=== PATIENT | male | born 1945 | race Caucasian/White ===

== ENCOUNTER 2016-06-01 03:23 | Emergency (ER) | payer MEDICARE, OTHER ==
[~2016-06-01] VITALS: Ht 182.9 cm; Wt 115.9 kg
[~2016-06-01 03:23] MED LIST: ACET-1890 PO; ASPI-628 PO; CHOL100094 PO; CYAN500 PO; CYCL7.5T27 PO; DOXA2TAB52 PO; FLUT16SP NS; GABA-502 PO; IBUP200T48 PO; LISI-571 PO; OMEP-113 PO; PRAV40TA PO
[2016-06-01 03:25] VITALS: BP 137/79; PULSE 75; RESP 20; O2SAT 95
[2016-06-01] MEDS ORDERED: 0.9% Sodium Chloride 1,000 ML IV ONE (03:42)
[2016-06-01] MEDS ORDERED: HYDROmorphone 1 mg/mL Inj IVPUSH PRN (03:45)
[2016-06-01] MEDS ORDERED: Ondansetron 2 mg/mL 2 mL Inj IVPUSH ONE (03:45)
[2016-06-01] MEDS ORDERED: Pantoprazole 4 mg/mL 10 mL Inj IVPUSH ONE (03:45)
--- NOTE | 2016-06-01 03:47 | ED.REPORT ---
HPI-Abd Pain M 40 and Over Date of Service Jun 01, 2016 ED Provider: Usman Azevedo MD Patient is a 71 year old male with a history of MGUS, hypertension, diabetes mellitus, kidney stones, and diverticulitis who presents to the ED complaining of left lower quadrant abdominal pain that awoke him from sleep at 1:30am this morning. The patient was sudden in onset and he felt well prior to going to bed last night. The patient went up to go to the bathroom but found that he was constipated. Patient states that he often wakes up in the morning with the sensation that he needs to have a bowel movement, but he is not able to do so until the afternoon. The patient had symptoms like this previously, with no etiology for his symptoms discovered. He denies nausea or vomiting. The patient reports a history of kidney stones and states that this does not feel like a kidney stone. He denies black/tarry stool, hematochezia, diarrhea, fever, or chills. Nursing Notes Stated Complaint: LEFT SIDE PAIN Chief Complaint: Male Abdominal Pain Nursing Notes Reviewed: Yes Allergies: Coded Allergies: Sulfa (Sulfonamide Antibiotics) (Verified Allergy, Severe, RASH, 05/11/15) ciprofloxacin HCl (Verified Allergy, Severe, RASH, 05/11/15) diazepam (Verified Allergy, Intermediate, Restlessness, 05/11/15) "acting like he was having a stroke" Scheduled Acetaminophen (Tylenol) 325 Mg Tablet 650 MG PO Q2-3 DAYS Amoxicillin/Clav K ER 1000-62.5 mg (Augmentin XR 1000-62.5 mg) 1 Each Tab.er.12h 2 TABLET PO BID Aspirin (Aspir 81) 81 Mg Tablet.dr 81 MG PO DAILY Cholecalciferol (Vitamin D3) (Vitamin D3) 1,000 Unit Capsule 1,000 UNIT PO DAILY Cyanocobalamin (Vitamin B12) 500 Mcg Tablet 1,000 MCG PO DAILY Doxazosin (Cardura) 2 Mg Tablet 2 MG PO HS Fluticasone Propionate (Fluticasone Propionate Nasal) 16 Gm [place].susp 2 SPRAY NS BID Gabapentin (Gabapentin) 300 Mg Capsule 600 MG PO BID Lisinopril (Lisinopril) 5 Mg Tablet 2.5 MG PO BID Metronidazole (Flagyl) 500 Mg Tablet 500 MG PO Q8H Omeprazole Magnesium (Omeprazole) 20 Mg Capsule. 20 MG PO DAILY Pravastatin (Pravastatin) 40 Mg Tablet 40 MG PO DAILY Scheduled PRN Cyclobenzaprine (Cyclobenzaprine) 7.5 Mg Tablet 7.5 MG PO TID PRN PRN Spasm Docusate Sodium (Colace) 100 Mg Capsule 100 MG PO BID PRN PRN For Constipation Hydrocodone-Acetaminophen 5-325 mg (Hydrocodone-Acetaminophen 5-325 mg) 1 Each Tablet 1 TABLET PO Q4H PRN PRN For Pain Ibuprofen (Ibuprofen) 200 Mg Tablet 200 MG PO QID PRN PRN For Pain General Time Seen by MD: 03:34 Chief Complaint Abdominal pain Hx Obtained From: Patient Arrived By: Walk-in Sudden in Onset?: Yes Onset Occurred: 1 - 4 hours ago Symptom Duration: Since onset Location: : LLQ Quality: Painful Severity: Current: Moderate Severity: Maximum: Moderate Recent Healthcare: No recent doctor visit, No recent hospitalization Similar Sx Previous: Yes Past Medical History Past Medical History 1. Surgically treated bladder cancer. 2. Gastroesophageal reflux disease. 3. Dyslipidemia. 4. Hypertension. 5. Mild insomnia. 6. Monoclonal gammopathy of uncertain significance. (MGUS) 7. Recurrent kidney stones, resolved since parathyroidectomy. 8. adrenal adenoma 9. basal cell carcinoma 10. BPH 11. arthritis 12. C. diff colitis Reports: Diabetes mellitus, Hyperlipidemia, Hypertension Reports: Diverticulitis Past Surgical History 1. He has had bladder surgery. 2. Penile implant. 3. Spinal stenosis surgery. 4. Bilateral orchiopexy. 5. Parathyroidectomy. 6. cervical and back fusions 7. left total hip replacement Family History noncontributory Smoking History Former Smoker Social History Alcohol Use: "Social" Other Social History: Good social support, , Local resident Ambulatory Status Independent Review of Systems Constitutional: Denies: Chills, Fever GI: Reports: Abdominal pain, Constipation, Denies: Bloody/tarry stool, Diarrhea, Hematochezia, Nausea, Vomiting Complete sys rev & neg: except as marked. Physical Exam Initial Vital Signs Vital Signs (First) Date Time Temp Pulse Resp B/P Pulse Ox O2 Delivery O2 Flow Rate FiO2 06/01/16 03:25 37.1 75 20 137/79 95 Room Air Initial VS: Reviewed Head / Eyes: Atraumatic, Normocephalic, PERRL ENT: Conjunctiva normal, No scleral icterus Neck: Supple, Full range of motion Extremities: Vascular intact, Neuro intact, No swelling, No tenderness Skin: Warm, Dry, No cyanosis Neurologic: Alert, Oriented, Nonfocal Psychiatric: Mood/affect normal, Behavior normal, Normal thought content General/Constitutional: Awake, Alert, No acute distress Respiratory / Chest: Breath sounds NL, Breath sounds = bilat, No respiratory distress, No rales, No rhonchi, No wheezing Cardiovascular: Heart rate NL, Regular rhythm, Heart sounds NL, No murmurs Abdomen: Soft, Non-tender, No guarding, No rebound, No distention Back: No CVA tenderness Interpretation & Diagnostics Lab Results Interpretation Result Diagram: 06/01/16 0430 06/01/16 0410 Test 06/01/16 03:55 06/01/16 04:10 06/01/16 04:30 Urine Color Yellow (YELLOW) Urine Appearance Clear (CLEAR,HAZY) Urine pH 6.0 (5.0-8.0) Urine Specific [place] 1.020 (1.003-1.035) Urine Protein Negativemg/dL (NEG,TRACE) Urine Glucose (UA) Negativemg/dL (NEGATIVE) Urine Ketones Negativemg/dL (NEGATIVE) Urine Occult Blood Negative (NEGATIVE) Urine Nitrite Negative (NEGATIVE) Urine Bilirubin Negative (NEGATIVE) Urine Urobilinogen Normalmg/dL (NORMAL) Urine Leukocyte Esterase Negative (NEGATIVE) Urine RBC 0-2/hpf (0-2) Urine WBC 0-5/hpf (0-5) Urine Epithelial Cells Occasional/hpf (NONE-MOD) Urine Crystals None seen (NONE SEEN) Urine Bacteria None/hpf (NONE-FEW) Urine Hyaline Casts Rare/lpf (NONE) Urine Granular Casts None seen (NONE SEEN) Urine Waxy Casts Rare (NONE SEEN) Urine Red Blood Cell Casts None seen (NONE SEEN) Urine White Blood Cell Casts None seen (NONE SEEN) Urine Mucus Present (None Seen) Urine Trichomonas None seen (NONE SEEN) Urine Yeast None (NONE SEEN) Urinalysis Comment None Urine Culture Reflexed Not indicated Prothrombin Time 10.5sec (8.1-12.5) Prothromb Time International Ratio 0.98ratio Sodium Level 141mEq/L (134-144) Potassium Level 3.9mEq/L (3.5-5.2) Chloride Level 101mEq/L (97-108) Carbon Dioxide Level 26mmol/L (18-29) Blood Urea Nitrogen 25mg/dL (8-27) Creatinine 1.13mg/dL (0.76-1.27) Estimat Glomerular Filtration Rate 68mL/min (>59) Glucose Level 115mg/dL (60-99) Lactic Acid Level 1.1mmol/L (0.4-2.0) Calcium Level 9.0mg/dL (8.5-10.1) Magnesium Level 1.8mg/dL (1.6-2.6) Total Bilirubin 0.7mg/dL (0.0-1.2) Aspartate Amino Transf (AST/SGOT) 18U/L (0-50) Alanine Aminotransferase (ALT/SGPT) 29U/L (0-44) Alkaline Phosphatase 78U/L (25-160) Total Protein 7.7g/dL (6.4-8.4) Albumin 4.3g/dL (3.4-5.0) Lipase 25U/L (13-60) White Blood Count 4.9th/mm3 (3.8-10.1) Red Blood Count 4.11mil/mm3 (4.40-5.80) Hemoglobin 12.3g/dL (13.8-17.2) Hematocrit 37.3% (41.0-50.0) Mean Corpuscular Volume 90.8fL (81-100) Mean Corpuscular Hemoglobin 29.9pg (27.0-35.0) Mean Corpuscular Hemoglobin Concent 33.0% (32.0-37.0) Red Cell Distribution Width 14.7% (12.3-15.4) Platelet Count 125bil/L (150-400) Neutrophils (%) (Auto) 73.7% (40-74) Lymphocytes (%) (Auto) 12.1% (14-46) Monocytes (%) (Auto) 8.9% (4-12) Eosinophils (%) (Auto) 4.7% (0-5) Basophils (%) (Auto) 0.4% (0-3) Re-Eval/Medical Decision Med Decision/Clinical Course GC 11-year-old with relatively sudden on left-sided flank and abdominal pain. He presents to have diverticulitis on CT. It is fairly mild, without perforation or abscess. He is able to eat and drink and feels he would be able tolerate oral meds at home. Discharged now with Vicodin for pain, Augmentin XR two tabs twice a day plus Flagyl for infection. Clear liquid progressive diet. Diverticulitis diet ultimately. Colace twice a day. Fiber supplementation ultimately. Discharged in stable condition. Source of Hx: Old records Re-Evaluation/Progress Note: Rechecked the patient to discuss the results of his CT scan. Patient understands and agrees with the plan. All questions were addressed. Counseled Regarding: Diagnosis, Lab results Discharge & Departure Primary Impression: Diverticulitis of sigmoid colon Vital Signs - All Vital Signs Date Time Temp Pulse Resp B/P Pulse Ox O2 Delivery O2 Flow Rate FiO2 06/01/16 06:57 36.6 88 18 138/72 98 Room Air 06/01/16 03:25 37.1 75 20 137/79 95 Room Air )( All Prior VS Reviewed: Yes Condition: Stable Referrals: Adeline Cheung MD (PCP) Scribe Attestation Portions of this note were transcribed by Melony Noe. I, Dr. Azevedo personally performed the history, physical exam and medical decision-making; I reviewed and confirmed the accuracy of the information in the transcribed note. Signed by: Jessica Cadena, 06/01/2016 0611 copies to: Adeline Cheung MD, Christopher W MD Jun 01, 2016 03:46 Melony Noe Jun 01, 2016 03:54
[2016-06-01 04:43] LABS: BASOPHILS % (AUTO) 0.4 % (0-3); EOSINOPHILS % (AUTO) 4.7 % (0-5); MONOCYTES % (AUTO) 8.9 % (4-12); Mean Corpuscular Hemoglobin 29.9 pg (27.0-35.0); Mean Corpuscular Volume 90.8 fL (81-100); NEUTROPHILS % (AUTO) 73.7 % (40-74); Platelet Count 125 bil/L (150-400)
[2016-06-01 04:45] LABS: INR 0.98 ratio
[2016-06-01 04:50] LABS: Magnesium 1.8 mg/dL (1.6-2.6)
[2016-06-01 04:55] LABS: APPEARANCE,URINE CLEAR (CLEAR,HAZY); COLOR,URINE YELLOW (YELLOW)
[2016-06-01 04:56] LABS: OCCULT BLOOD,URINE NEGATIVE (NEGATIVE); UROBILINOGEN,URINE NORMAL (NORMAL)
[2016-06-01] MEDS ORDERED: cefTRIAXone Inj 2,000 MG in Dextrose 5% Minibag Plus 50 ML IV ONE (06:55)
[2016-06-01 06:57] VITALS: BP 138/72; PULSE 88; RESP 18; O2SAT 98
[2016-06-01] MEDS ORDERED: AMOX-364 PO (07:04)
[2016-06-01] MEDS ORDERED: DOCU-41 PO (07:04)
[2016-06-01] MEDS ORDERED: HYDR-4003 PO (07:04)
[2016-06-01] MEDS ORDERED: METR500T PO (07:04)
[2016-06-01 07:52] VITALS: BP 110/55; PULSE 60; RESP 14; O2SAT 97
[2016-06-01 07:56] VITALS: BP 110/55; PULSE 60; RESP 14; O2SAT 97
--- NOTE | 2016-06-01 11:06 | DRSVH ---
PROCEDURE: CT ABDOMEN AND PELVIS WITH CONTRAST ([id number]) INDICATIONS: left flank pain, hx diverticulitis TECHNIQUE: After the administration of intravenous contrast, 5 mm thick sections acquired from the diaphragm to the symphysis. 5 mm coronal and sagittal reformats were acquired. For radiation dose reduction, the following was used: automated exposure control, adjustment of mA and/or kV according to patient siz e. COMPARISON: [facility], CT, ABD/PELVIS W/CON (PN), 04/06/2013, 2:45. FINDINGS: Image quality: Excellent. ABDOMEN: Lung bases: Lung bases are clear. Heart size is normal. Solid organs: Liver and spleen are normal in size and enhancement. There are scattered small simple appearing hepatic cysts. Gallbladder appears normal. Biliary system is non dilated. Pancreas enha nces normally. No adrenal nodules. Kidneys demonstrate normal size and enhancement, without hydrone phrosis. There is an 8mm nonobstructing 746 Hounsfield units a lower third right renal collecting sy stem calculus, without associated renal inflammation. An exophytic simple appearing large left renal cortical cyst measures up to 7.5 cm in maximal dimension, projecting leftward. Peritoneum and bowel: Bowel loops demonstrate normal wall thickness and caliber. No free fluid or a ir. Nodes and vessels: No retroperitoneal or mesenteric adenopathy by size criteria. Aorta and inferior vena cava are normal in size. Miscellaneous: No ventral hernias. PELVIS: Genitourinary: Bladder wall thickness is normal. Penile implant control device implanted right lowe r pelvis near the groin level, previously present with no associated inflammation. Miscellaneous: No inguinal hernias or adenopathy. At the left lower quadrant note is made of modera te sigmoid diverticulosis, and at the junction of the descending and sigmoid bowel adjacent pericolon ic mild edema is present indicating diverticulitis there is acute, but without associated peridiverti cular abscess. Bones: No suspicious bony lesions. No vertebral body compression fractures. IMPRESSION: Acute left lower quadrant diverticulitis in the setting of mild to moderate sigmoid diver ticulosis. No peridiverticular abscess is associated. Nonobstructive 8mm maximal dimension lower right renal collecting system calculus. Scattered simple hepatic cysts, and throughout the abdomen and pelvis no underlying neoplasm is suspected. Penile imp lant control device right lower quadrant. Dictated by: Fabio Johnson M.D. on 06/01/2016 at 10:54 Approved by: Fabio Johnson M.D. on 06/01/2016 at 11:05
[2016-06-02] MEDS ORDERED: OMEP20CA11 PO (09:40)
[2016-06-02] MEDS ORDERED: CYAN10008 PO (09:40)
[2016-06-02] MEDS ORDERED: IBUP200C PO (09:42)
[2016-06-02] MEDS ORDERED: ASPI-973 PO (09:44)
[2016-06-02] MEDS ORDERED: CHOL100045 PO (09:44)
== END 2016-06-01 08:00 | disposition home or self-care (01) ==
LOC: SED 03:23
DX: K57.32 Diverticulitis of large intestine without perforation or abscess without bleeding (principal); D47.2 Monoclonal gammopathy; I10 Essential (primary) hypertension; E11.9 Type 2 diabetes mellitus without complications; K21.9 Gastro-esophageal reflux disease without esophagitis; E78.5 Hyperlipidemia, unspecified; Z87.442 Personal history of urinary calculi; Z85.51 Personal history of malignant neoplasm of bladder; Z87.891 Personal history of nicotine dependence; Z79.82 Long term (current) use of aspirin; Z88.2 Allergy status to sulfonamides; Z88.1 Allergy status to other antibiotic agents; Z88.8 Allergy status to other drugs, medicaments and biological substances
CPT/HCPCS: 36415; 74177; 80053; 81000; 83605; 83690; 83735; 85025; 85610; 96361; 96365; 96375; 99285; J0696; J1170; J1885; J2405; J7030; Q9967

== ENCOUNTER 2016-06-02 06:33 | Inpatient (IN) | payer MEDICARE, OTHER ==
[~2016-06-02] VITALS: Ht 182.9 cm; Wt 118.3 kg
[~2016-06-02 06:33] MED LIST changes: +AMOX-364 PO; +DOCU-41 PO; +HYDR-4003 PO; +METR500T PO
[2016-06-02 06:39] VITALS: BP 118/72; PULSE 74; RESP 24; O2SAT 94
--- NOTE | 2016-06-02 06:42 | ED.REPORT ---
HPI-Abd Pain M 40 and Over Date of Service Jun 02, 2016 ED Provider: Alex Koehler MD Pt is a 71 year old male with a hx of bladder cancer, HTN, DM, and hyperlipidemia presenting to the ED complaining of 8/10 lower left sided abdominal pain worsened last night. Associated symptoms include nausea, vomiting , diaphoresis. Denies fever. Pt was seen in the ED yesterday and was diagnosed with diverticulitis and put on antibiotics, but now reports increased abdominal pain and nausea. 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 81 MG PO DAILY Cholecalciferol (Vitamin D3) (Vitamin D3) 1,000 Unit Capsule 1,000 UNIT PO DAILY Cyanocobalamin (Vitamin B12) 500 Mcg Tablet 1,000 MCG PO DAILY Doxazosin (Cardura) 2 Mg Tablet 2 MG PO HS Fluticasone Propionate (Fluticasone Propionate Nasal) 16 Gm [place].susp 2 SPRAY NS BID Gabapentin (Gabapentin) 300 Mg Capsule 600 MG PO BID Lisinopril (Lisinopril) 5 Mg Tablet 2.5 MG PO BID Metronidazole (Flagyl) 500 Mg Tablet 500 MG PO Q8H Omeprazole Magnesium (Omeprazole) 20 Mg Capsule. 20 MG PO DAILY Pravastatin (Pravastatin) 40 Mg Tablet 40 MG PO DAILY Scheduled PRN Cyclobenzaprine (Cyclobenzaprine) 7.5 Mg Tablet 7.5 MG PO TID PRN PRN Spasm Docusate Sodium (Colace) 100 Mg Capsule 100 MG PO BID PRN PRN For Constipation Hydrocodone-Acetaminophen 5-325 mg (Hydrocodone-Acetaminophen 5-325 mg) 1 Each Tablet 1 TABLET PO Q4H PRN PRN For Pain Ibuprofen (Ibuprofen) 200 Mg Tablet 200 MG PO QID PRN PRN For Pain General Time Seen by MD: 06:37 Chief Complaint Abdominal pain Hx Obtained From: Patient Arrived By: Walk-in Sudden in Onset?: No Onset Occurred: Yesterday Symptom Duration: Since onset Progression since Onset: Constant Location: : LLQ Quality: Painful Severity: Current: Pain level 8 out of 10 Severity: Maximum: Severe Recent Healthcare: No recent hospitalization, Recent doctor visit Similar Sx Previous: Yes Past Medical History Past Medical History Notes: Pateint seen yesterday in ED, dx and treated for diverticulitis (+ CT scan) Past Medical History 1. Surgically treated bladder cancer. 2. Gastroesophageal reflux disease. 3. Dyslipidemia. 4. Hypertension. 5. Mild insomnia. 6. Monoclonal gammopathy of uncertain significance. (MGUS) 7. Recurrent kidney stones, resolved since parathyroidectomy. 8. adrenal adenoma 9. basal cell carcinoma 10. BPH 11. arthritis 12. Admit for Sepsis Colitis 2012 (initial concern for C diff, but multiple C diff studies negative) Reports: Diabetes mellitus, Hyperlipidemia, Hypertension Reports: Diverticulitis Past Surgical History 1. He has had bladder surgery. 2. Penile implant. 3. Spinal stenosis surgery. 4. Bilateral orchiopexy. 5. Parathyroidectomy. 6. cervical and back fusions 7. left total hip replacement Family History noncontributory Smoking History Former Smoker Social History Alcohol Use: "Social" Other Social History: Good social support, , Local resident Ambulatory Status Independent Review of Systems Constitutional: Denies: Fever GI: Reports: Abdominal pain, Nausea, Vomiting Complete sys rev & neg: except as marked. Skin: Reports Diaphoresis Physical Exam Initial Vital Signs Vital Signs (First) Date Time Temp Pulse Resp B/P Pulse Ox O2 Delivery O2 Flow Rate FiO2 06/02/16 06:39 36.8 74 24 118/72 94 Room Air Initial VS: Reviewed, Unavailable (none on chart, ordered) Head / Eyes: Atraumatic, Normocephalic, PERRL ENT: Mucous membranes moist, Conjunctiva normal, No scleral icterus Neck: Supple, Non-tender, Full range of motion Extremities: Vascular intact, Neuro intact, No swelling, No tenderness Skin: Warm, Dry, No cyanosis Neurologic: Alert, Oriented, Nonfocal Psychiatric: Mood/affect normal, Behavior normal, Normal thought content General/Constitutional: Awake, Alert, Well appearing Respiratory / Chest: No respiratory distress Abdomen: No guarding, No rebound Tenderness/Guarding/Rebound: Positive: Tender LLQ... (Severe) Back: Full range of motion Interpretation & Diagnostics Interpretation & Diagnostics: CT scan from yesterday reviewed, positive diverticulitis without signs of abscess or perforation Lab Results Interpretation Result Diagram: 06/02/16 0705 06/02/16 0705 Test 06/02/16 07:05 White Blood Count 6.5th/mm3 (3.8-10.1) Red Blood Count 4.15mil/mm3 (4.40-5.80) Hemoglobin 12.6g/dL (13.8-17.2) Hematocrit 37.6% (41.0-50.0) Mean Corpuscular Volume 90.6fL (81-100) Mean Corpuscular Hemoglobin 30.4pg (27.0-35.0) Mean Corpuscular Hemoglobin Concent 33.5% (32.0-37.0) Red Cell Distribution Width 14.9% (12.3-15.4) Platelet Count 122bil/L (150-400) Neutrophils (%) (Auto) 85.3% (40-74) Lymphocytes (%) (Auto) 6.0% (14-46) Monocytes (%) (Auto) 6.5% (4-12) Eosinophils (%) (Auto) 2.0% (0-5) Basophils (%) (Auto) 0.2% (0-3) Sodium Level 136mEq/L (134-144) Potassium Level 4.0mEq/L (3.5-5.2) Chloride Level 97mEq/L (97-108) Carbon Dioxide Level 24mmol/L (18-29) Blood Urea Nitrogen 23mg/dL (8-27) Creatinine 1.07mg/dL (0.76-1.27) Estimat Glomerular Filtration Rate 73mL/min (>59) Glucose Level 123mg/dL (60-99) Calcium Level 8.8mg/dL (8.5-10.1) Total Bilirubin 0.9mg/dL (0.0-1.2) Aspartate Amino Transf (AST/SGOT) 16U/L (0-50) Alanine Aminotransferase (ALT/SGPT) 24U/L (0-44) Alkaline Phosphatase 79U/L (25-160) Total Protein 7.7g/dL (6.4-8.4) Albumin 4.2g/dL (3.4-5.0) Lipase 16U/L (13-60) Lab Results Interpretation: CBC normal, no significant interval change compared with yesterday CMP normal Re-Eval/Medical Decision Med Decision/Clinical Course This is a 71-year-old male who was seen yesterday in the emergency department had a workup and was diagnosed with diverticulitis by CT scan, and was discharged on Augmentin plus Flagyl-now returns with worsening pain, nausea and vomiting requesting hospitalization. He reports no definite fevers, but the pain has been uncontrolled, worsened overnight, said nausea vomiting not taking by mouth well. The patient's afebrile, he does not appear toxic but is uncomfortable. He still has persistent left lower quadrant tenderness, but is not guarding, rebound or signs of sophy peritonitis indicated need for repeat CT imaging. Repeat CBC was normal without development of interval white count. The patient received titrated Dilaudid Zofran, to this point is being started on IV Zosyn and Flagyl. The plan at this point is admission for parenteral therapy until better control occurs and the patient can be discharged to complete oral regimen. Case discussed with the hospitalist. Source of Hx: Old records (including yesterday's ED Visit and CT scan) Time of Eval: 08:00 Patient Status: Condition improved Re-Evaluation/Progress Note: Discussed lab results and plan for admission. Pt understands and agrees. Consultation : Referral / Consult Name: Claudy Tee Consulted With: Hospitalist Call Returned at: 07:55 Advisor Consultant: Will see patient, Agrees with plan, Accepts admit Differential Diagnosis: Positive: Acute abdominal pain, Diverticular disease, Negative: Abdominal aortic aneurysm, Acute coronary syndrome, Aortic dissection, Dyspepsia, Esophageal rupture, Gastroenteritis, Gun shot wound abdomen, Peritonitis, Pyelonephritis, Unstable angina Counseled Regarding: Diagnosis, Lab results, Need for follow-up, When/why to return to ED Discharge & Departure Primary Impression: Diverticulitis of sigmoid colon Disposition: Home Vital Signs - All Vital Signs Date Time Temp Pulse Resp B/P Pulse Ox O2 Delivery O2 Flow Rate FiO2 06/02/16 06:39 36.8 74 24 118/72 94 Room Air )( All Prior VS Reviewed: Yes Condition: Improved Referrals: Adeline Cheung MD (PCP) Jessica Attestation Portions of this note were transcribed by Mary Del Rio. I, Dr. Koehler personally performed the history, physical exam and medical decision-making; I reviewed and confirmed the accuracy of the information in the transcribed note. Signed by: Jessica Rhodes, 06/02/2016 at 0813. copies to: Adeline Cheung MD, Matthew F MD Jun 02, 2016 06:42 MARY DEL RIO Jun 02, 2016 06:57
[2016-06-02] MEDS ORDERED: Ondansetron 2 mg/mL 2 mL Inj IVPUSH ONE (06:45)
[2016-06-02] MEDS ORDERED: Piperacillin-Tazo 3.375 Gm Inj 3.375 GM in Dextrose 5% Minibag Plus 50 ML IV ONE (07:00)
[2016-06-02] MEDS ORDERED: metroNIDAZOLE Inj 1,000 MG in IV Premix 1 EACH IV ONE (07:00)
[2016-06-02] MEDS ORDERED: 0.9% Sodium Chloride 1,000 ML IV ONE (07:00)
[2016-06-02] MEDS: HYDROmorphone 0.5 mg/0.5 mL iSecure Syringe IVPUSH PRN ×2 (07:14→08:23)
[2016-06-02 07:16] LABS: BASOPHILS % (AUTO) 0.2 % (0-3); MONOCYTES % (AUTO) 6.5 % (4-12); Mean Corpuscular Hemoglobin 30.4 pg (27.0-35.0); Mean Corpuscular Volume 90.6 fL (81-100); NEUTROPHILS % (AUTO) 85.3 % (40-74); Platelet Count 122 bil/L (150-400)
[2016-06-02] MEDS ORDERED: 0.9% Sodium Chloride 1,000 ML IV SCH (08:10)
[2016-06-02] MEDS ORDERED: Alum-Mag Hydrox-Simeth 30 mL Suspension PO PRN ×2 (08:10→16:40)
[2016-06-02] MEDS ORDERED: Dextrose 5% 500 ML IV SCH (08:10)
[2016-06-02] MEDS ORDERED: Ondansetron 2 mg/mL 2 mL Inj IVPUSH PRN ×2 (08:10→16:40)
[2016-06-02] MEDS ORDERED: HYDROmorphone PCA 0.2 mg/mL 30 mL Inj IV PRN (08:10)
[2016-06-02 08:15] VITALS: BP 123/61; PULSE 68; RESP 14; O2SAT 94
[2016-06-02 08:24] VITALS: BP 123/61; PULSE 68; RESP 14; O2SAT 94
--- NOTE | 2016-06-02 08:40 | NUR ---
Arrival to room 246-2 Pt arrived in w/ch from ER. Barbara gave report to this RN Able to stand and transfer into bed. present upon admission.
[2016-06-02 08:55] VITALS: BP 123/73; PULSE 81; RESP 18; O2SAT 93
[2016-06-02 09:04] LABS: APPEARANCE,URINE CLEAR (CLEAR,HAZY); COLOR,URINE YELLOW (YELLOW); OCCULT BLOOD,URINE NEGATIVE (NEGATIVE); UROBILINOGEN,URINE NORMAL (NORMAL)
[2016-06-02] MEDS ORDERED: OMEP20CA11 PO (09:40)
[2016-06-02] MEDS ORDERED: CYAN10008 PO (09:40)
[2016-06-02] MEDS ORDERED: IBUP200C PO (09:42)
[2016-06-02] MEDS ORDERED: ASPI-973 PO (09:44)
[2016-06-02] MEDS ORDERED: CHOL100045 PO (09:44)
--- NOTE | 2016-06-02 09:58 | NUR ---
Admit nurse note Admission assessment completed. Pt. c/o 08/15 pain and I instruct him to use his HEALTH INSURANCE ADJUSTER for pain. Pt. demonstrates use of HEALTH INSURANCE ADJUSTER but reticence to do so. 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 HE states he has not had undue amounts of stress lately. He lives with his Gloria. DPOA and advance directives are on the chart. Allergies verified and sticker placed on nameband. Pt. oriented to room, call sahni and fall precautions. Prediabetic diet noted per pt. report. Pt. is high risk for sleep apnea, SP02 monitor placed now. Pt. has hx bradycardia with syncope and falls, one of which cased back fractures and a tbi. Pt. demonstrates use of the call sahni and family and visitors are present now. Report given to primary RN./
[2016-06-02] MEDS ORDERED: HYDROcodone-APAP 5-325 mg Tablet PO PRN (16:40)
[2016-06-02] MEDS ORDERED: Polyethylene Glycol (PEG) 17 Gm Powder PO PRN (16:40)
--- NOTE | 2016-06-02 16:51 | PCM.HPMED ---
Subjective Date of Service Jun 02, 2016 Primary Provider: Admitting Physician: Claudy Tee Primary Care Physician: Adeline Cheung MD Attending Physician: Claudy Tee Chief Complaint: left lower abdominal pain, nausea, vomiting History of Present Illness: 71 year old male presented to the ED yesterday (06/01) complaining of acute left lower abdominal pain. CT abdomen at that time was suggestive of acute diverticulitis. He was was offered the option to be admitted but he chose to go home with oral antibiotics. His abdominal pain continued last night and this morning he had several episodes of bilious vomiting. As instructed by ED the day before he represented to the hospital today and is being admitted for further inpatient treatment of his acute diverticulitis. He reports another episode of diverticulitis more than 10 years ago but otherwise does not recall any further details. His last colonoscopy was about 5 years ago at which time he had some polyps removed and says he thinks he is supposed to have repeat colonoscopy soon. He further reports history of irritable bowel and notes that he easily gets constipated with his last bowel movement about 3 days ago without any recent melena or hematochezia. He otherwise denies any fever or chills. He dose endorse a mild frontal headache that began since yesterday as well. Review of Systems: Constitutional: Negative, except as otherwise mentioned in the history above. Ophthalmologic: Negative, except as otherwise mentioned in the history above. Cardiovascular: Negative, except as otherwise mentioned in the history above. Respiratory: Negative, except as otherwise mentioned in the history above. Gastrointestinal: Negative, except as otherwise mentioned in the history above. Genitourinary: Negative, except as otherwise mentioned in the history above. Musculoskeletal: Negative, except as otherwise mentioned in the history above. Neurological: Negative, except as otherwise mentioned in the history above. Psychiatric: Negative, except as otherwise mentioned in the history above. Hematologic/Lymphatic: Negative, except as otherwise mentioned in the history above. Allergic/Immunologic: Negative, except as otherwise mentioned in the history above. Allergies Coded Allergies: Sulfa (Sulfonamide Antibiotics) (Verified Allergy, Severe, RASH, 06/02/16) ciprofloxacin HCl (Verified Allergy, Severe, RASH, 06/02/16) diazepam (Verified Adverse Reaction, Intermediate, over sedation, 06/02/16) "acting like he was having a stroke" Home Medications Doxazosin 2 Mg PO HS Lisinopril 5 Mg PO DAILY Pravastatin 40 Mg PO DAILY 30 Days Aspirin 81 Mg PO DAILY Gabapentin 600 Mg PO TID 30 Days Ibuprofen 600 Mg PO BID PRN Fluticasone Propionate 2 Ponce NS HS #16 GM Docusate Sodium 100 Mg PO BID PRN Omeprazole 20 Mg PO HS Cholecalciferol 1,000 Unit PO DAILY Cyanocobalamin 1,000 Mcg PO DAILY Exam Lab & Micro Results Laboratory Tests Test 06/02/16 07:05 06/02/16 08:17 White Blood Count 6.5th/mm3 (3.8-10.1) Red Blood Count 4.15mil/mm3 (4.40-5.80) Hemoglobin 12.6g/dL (13.8-17.2) Hematocrit 37.6% (41.0-50.0) Mean Corpuscular Volume 90.6fL (81-100) Mean Corpuscular Hemoglobin 30.4pg (27.0-35.0) Mean Corpuscular Hemoglobin Concent 33.5% (32.0-37.0) Red Cell Distribution Width 14.9% (12.3-15.4) Platelet Count 122bil/L (150-400) Neutrophils (%) (Auto) 85.3% (40-74) Lymphocytes (%) (Auto) 6.0% (14-46) Monocytes (%) (Auto) 6.5% (4-12) Eosinophils (%) (Auto) 2.0% (0-5) Basophils (%) (Auto) 0.2% (0-3) Sodium Level 136mEq/L (134-144) Potassium Level 4.0mEq/L (3.5-5.2) Chloride Level 97mEq/L (97-108) Carbon Dioxide Level 24mmol/L (18-29) Blood Urea Nitrogen 23mg/dL (8-27) Creatinine 1.07mg/dL (0.76-1.27) Estimat Glomerular Filtration Rate 73mL/min (>59) Glucose Level 123mg/dL (60-99) Calcium Level 8.8mg/dL (8.5-10.1) Total Bilirubin 0.9mg/dL (0.0-1.2) Aspartate Amino Transf (AST/SGOT) 16U/L (0-50) Alanine Aminotransferase (ALT/SGPT) 24U/L (0-44) Alkaline Phosphatase 79U/L (25-160) Total Protein 7.7g/dL (6.4-8.4) Albumin 4.2g/dL (3.4-5.0) Lipase 16U/L (13-60) Urine Color Yellow (YELLOW) Urine Appearance Clear (CLEAR,HAZY) Urine pH 6.0 (5.0-8.0) Urine Specific [place] 1.025 (1.003-1.035) Urine Protein Tracemg/dL (NEG,TRACE) Urine Glucose (UA) Negativemg/dL (NEGATIVE) Urine Ketones Negativemg/dL (NEGATIVE) Urine Occult Blood Negative (NEGATIVE) Urine Nitrite Negative (NEGATIVE) Urine Bilirubin Negative (NEGATIVE) Urine Urobilinogen Normalmg/dL (NORMAL) Urine Leukocyte Esterase Negative (NEGATIVE) Urine RBC 0-2/hpf (0-2) Urine WBC 0-5/hpf (0-5) Urine Epithelial Cells Occasional/hpf (NONE-MOD) Urine Crystals None seen (NONE SEEN) Urine Bacteria Few/hpf (NONE-FEW) Urine Hyaline Casts None/lpf (NONE) Urine Granular Casts None seen (NONE SEEN) Urine Waxy Casts None seen (NONE SEEN) Urine Red Blood Cell Casts None seen (NONE SEEN) Urine White Blood Cell Casts None seen (NONE SEEN) Urine Mucus Present (None Seen) Urine Trichomonas None seen (NONE SEEN) Urine Yeast None (NONE SEEN) Urinalysis Comment None Urine Culture Reflexed Not indicated Result Diagram: 06/02/1670406/02/16 0705 [facility] 1. Bladder cancer s/p surgical resection in the past 2. GERD. 3. Dyslipidemia. 4. Hypertension. 5. Monoclonal gammopathy of uncertain significance (MGUS), IgG subtype, falling within a low-risk category. 6. Nephrolithiasis. 7. Pre-diabetic 8. 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 due to diabetes vs "Agent [place]" exposure) 9. History of syncope (las episode 3 years ago) of unclear etiology with reported extensive workup and followup by his pipe organ technician, Dr. Mar Surgical History 1. Bladder surgery. 2. Spinal stenosis surgery. 3. Bilateral orchiopexy. 4. Parathyroidectomy. 5. Penile implant. Family History Both parents with heart disease. Father and a brother with prostate cancer Social History Hx Alcohol Use: No (social) Hx Substance Use: No Hx Tobacco Use: Yes (quit cigarettes in 1969 and a pipe in 1975.) Smoking Status: Former Smoker Exam Vital Signs Vital Sign - Last Date Time Temp Pulse Resp B/P Pulse Ox O2 Delivery O2 Flow Rate FiO2 06/02/16 08:55 36.7 81 18 123/73 93 Room Air General: Alert, Oriented X3, Cooperative, No Acute Distress Head: Normal Eyes: Scleral Anicteric Nose: Mucous Membr Moist/[place] Mouth: Mucous Membr Moist/[place] Neck: Supple Chest & Lungs: Chest Wall Normal, Clear to auscultation & percussion Cardiovascular: Regular Rate/Rhythm Pulses: NL carotid, radial, femoral, DP, PT Abdomen: Tender (diffusely more so at left lower abdoemn without rebound.), Non -distended, Normoactive bowel tones, Soft Extremities: No cyanosis/clubbing/edma bilat Skin: Other (no ulcer/rash) Neurological: Grossly Neurologically Intact, Cranial Nerves 2-12 Intact, Normal Speech Lab and Diagnostics Result Diagram: 06/02/1670406/02/16 0705 X-Rays, CTs and MRIs Date of Service: 06/01/16 0342 PROCEDURE: CT ABDOMEN AND PELVIS WITH CONTRAST ([id number]) IMPRESSION: Acute left lower quadrant diverticulitis in the setting of mild to moderate sigmoid diverticulosis. No peridiverticular abscess is associated. Nonobstructive 8mm maximal dimension lower right renal collecting system calculus. Scattered simple hepatic cysts, and throughout the abdomen and pelvis no underlying neoplasm is suspected. Penile implant control device right lower quadrant. Dictated by: Fabio Johnson M.D. on 06/01/2016 at 10:54 Approved by: Fabio Johnson M.D. on 06/01/2016 at 11:05 Assessment & Plan 71 year old male presented to the ED yesterday (06/01) complaining of acute left lower abdominal pain. CT abdomen at that time was suggestive of acute diverticulitis. He was was offered the option to be admitted but he chose to go home with oral antibiotics. His abdominal pain continued and he now presents with worsening abdominal pain and vomiting. # Acute diverticulitis. Present on admission. Ongoing - Continue with IV Zosyn started in ED and consider transitioning back to oral antibiotics in next couple of days - Tolerating clear liquids for now. Advance to full liquid and then if tolerate it tonight advance diet in am - Continue with supportive care including antiemetics and pain control as needed # History of hypertension. Stable - Continue with home dose Lisinopril # GERD. Chronic. - Continue with home dose PPI # Dyslipidemia. Chronic. Presumed stable. - Continue with home dose statin # History of Monoclonal gammopathy of uncertain significance (MGUS), IgG subtype , falling within a low-risk category. 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 Stable - Continue with home dose Gabapentin Expected length of hospital stay is greater than 2 midnights and likely 2 days. GI Prophylaxis: Proton Pump Inhibitor VTE Prophylaxis: Sub-Q Heparin (Unfractionated) Resuscitation Status: CPR: Attempt Resuscitation (discussed and verified with patient) Time spent 60 min Claudy Tee Jun 02, 2016 16:50
[2016-06-02] MEDS: Insulin Human REGular 300 Unit/3 mL Inj SUBQ SCH ×2 (17:00→22:12)
[2016-06-02] MEDS: Piperacillin-Tazo 3.375 Gm Inj 3.375 GM in Dextrose 5% Minibag Plus 50 ML IV SCH (17:50)
--- NOTE | 2016-06-02 18:46 | NUR ---
1550 notified pt c/o abd more tender, endy on left lower quadrant. MD came and did admit. Per orders PRE BILLING CLINICIAN DC'd, reported pain 5/10 which is tolerable. tolerating both clear liquid and full liquid food. feeling constipated, rx given per request. Attempt x3 with only flatus.
[2016-06-02 20:10] VITALS: BP 138/76; PULSE 76; RESP 17; O2SAT 93
[2016-06-02] MEDS: Heparin 5,000 Unit/mL Inj SUBQ SCH (20:54)
[2016-06-02] MEDS: Pantoprazole 40 mg ER24 Tablet PO SCH (20:54)
[2016-06-02] MEDS: Fluticasone 0.05% 15 Spray/2 Gm 16 Gm Nasal Spray NASAL SCH (22:07)
[2016-06-03] MEDS: Piperacillin-Tazo 3.375 Gm Inj 3.375 GM in Dextrose 5% Minibag Plus 50 ML IV SCH ×4 (00:27→23:56)
[2016-06-03 00:30] VITALS: BP 130/69; PULSE 70; RESP 17; O2SAT 96
--- NOTE | 2016-06-03 02:31 | NUR ---
Shift Note Pt. A&Ox4, calm, pleasant and cooperative to staff and care, Ambulated independently in with steady gait, uses call light for assistance, Pt. stated of tenderness in left side abdomen but tolerable, stated" My pain is much better than it was", pt. sleep good, Denies SOB, CP, N/V, had a small BMx1 per pt. report, tolerating full liquid diet, hourly rounds, call light in reach, VSS, will continue to monitor closely.
[2016-06-03 04:36] VITALS: BP 125/73; PULSE 64; RESP 16; O2SAT 94
[2016-06-03] MEDS: Heparin 5,000 Unit/mL Inj SUBQ SCH ×3 (05:16→21:09)
--- NOTE | 2016-06-03 06:54 | PCM.PNMED ---
Subjective Date of Service Jun 03, 2016 Subjective Patient seen and examined. Feeling better today with decreased abdominal pain (2 /10 intensity). No fever or chills. Tolerating diet with no nausea or vomiting Exam Vital Signs Vital Sign - Last Date Time Temp Pulse Resp B/P Pulse Ox O2 Delivery O2 Flow Rate FiO2 06/03/16 04:36 36.8 64 16 125/73 94 Room Air Intake and Output 06/02/16 06/02/16 06/03/16 Cumulative From/Thru 15:00 23:00 07:00 06/02/16 06:39 - 06/03/16 06:14 Intake Total 1865 ml 404 ml 2269 ml Output Total 300 ml 300 ml Balance 1565 ml 404 ml 1969 ml Intake Oral 980 ml 200 ml 1180 ml IV Total 885 ml 204 ml 1089 ml Output Urine Total 300 ml 300 ml # Voids 3 3 6 # Bowel Movements 0 1 1 Exam General: Alert, Oriented X3, Cooperative, No acute Distress Eyes: PERRLA, Scleral Anicteric Mouth: Mouth Normal, Mucous Membranes Moist/[place] Neck: Supple, no Thyromegaly, trachea central. Chest & Lungs: Clear to auscultation & percussion, No adventitious breath sounds, no crackles, no wheeze Cardiovascular: Normal S1, Normal S2, No Murmurs/Rubs/Gallops, Regular Rate/ Rhythm, (No JVD, no peripheral edema) Pulses: Radial (present and equal), Dorsalis Pedi (present and equal) Abdomen: Soft, Non-tender, Non-distended, Normoactive bowel tones. Musculoskeletal: Unremarkable. Normal range of motion, no swollen or erythematous joints Extremities: No edema, no cyanosis, no clubbing. Skin: No rashes. Warm and dry, no erythematous areas Neurological: Grossly neurologically intact, Normal Speech, Sensation Intact Lymphatic: Lymph nodes Cervical and Axillary not palpable. IVs and Medications Medications Reviewed: Medications were reviewed in detail Lab and Diagnostics Laboratory Tests Test 06/03/16 06:20 White Blood Count 4.1th/mm3 (3.8-10.1) Red Blood Count 4.08mil/mm3 (4.40-5.80) Hemoglobin 12.1g/dL (13.8-17.2) Hematocrit 37.0% (41.0-50.0) Mean Corpuscular Volume 90.7fL (81-100) Mean Corpuscular Hemoglobin 29.7pg (27.0-35.0) Mean Corpuscular Hemoglobin Concent 32.7% (32.0-37.0) Red Cell Distribution Width 14.6% (12.3-15.4) Platelet Count 118bil/L (150-400) Sodium Level 139mEq/L (134-144) Potassium Level 3.8mEq/L (3.5-5.2) Chloride Level 101mEq/L (97-108) Carbon Dioxide Level 24mmol/L (18-29) Blood Urea Nitrogen 15mg/dL (8-27) Creatinine 1.08mg/dL (0.76-1.27) Estimat Glomerular Filtration Rate 72mL/min (>59) Glucose Level 106mg/dL (60-99) Calcium Level 8.6mg/dL (8.5-10.1) Magnesium Level 1.9mg/dL (1.6-2.6) Result Diagram: 06/02/16 0705 06/02/16 0705 X-Rays, CTs and MRIs Date of Service: 06/01/16 0342 PROCEDURE: CT ABDOMEN AND PELVIS WITH CONTRAST ([id number]) IMPRESSION: Acute left lower quadrant diverticulitis in the setting of mild to moderate sigmoid diverticulosis. No peridiverticular abscess is associated. Nonobstructive 8mm maximal dimension lower right renal collecting system calculus. Scattered simple hepatic cysts, and throughout the abdomen and pelvis no underlying neoplasm is suspected. Penile implant control device right lower quadrant. Dictated by: Fabio Johnson M.D. on 06/01/2016 at 10:54 Approved by: Fabio Johnson M.D. on 06/01/2016 at 11:05 Assessment & Plan 71 year old male presented to the ED yesterday (06/01) complaining of acute left lower abdominal pain. CT abdomen at that time was suggestive of acute diverticulitis. He was was offered the option to be admitted but he chose to go home with oral antibiotics. His abdominal pain continued and he now presents with worsening abdominal pain and vomiting. 1 Acute diverticulitis. Present on admission. Under therapy, improving - Continue with IV Zosyn started in ED and consider transitioning back to Augmentin tomorrow - Tolerating diet, advanced today - Continue with supportive care including antiemetics and pain control as needed 2 Hypertension. Stable so far - Continue Lisinopril 5 mg daily 3 GERD. Chronic. - Continue Protonix 40 mg daily 4 Dyslipidemia. Chronic. Presumed stable. - Continue Atorvastatin 10 mg HS 5 Monoclonal gammopathy of uncertain significance (MGUS), IgG subtype, falling within a low-risk category. 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 Stable - Continue Gabapentin 600 mg tid - Acetaminophen as needed for mild pain/fever/headache - Bowel regimen as needed - Antiemetic as needed Patient admitted under inpatient status with expected length of stay > 2 midnights for severity of present symptoms, complexities of treatment plan and risk for adverse event Disposition: 1-2 days . GI Prophylaxis: Proton Pump Inhibitor VTE Prophylaxis: Sub-Q Heparin (Unfractionated) Resuscitation Status: CPR: Attempt Resuscitation (discussed and verified with patient) Milan Norris MD Jun 03, 2016 06:54
[2016-06-03 07:03] LABS: Mean Corpuscular Hemoglobin 29.7 pg (27.0-35.0); Mean Corpuscular Volume 90.7 fL (81-100)
[2016-06-03 07:26] LABS: Magnesium 1.9 mg/dL (1.6-2.6)
[2016-06-03] MEDS: Insulin Human REGular 300 Unit/3 mL Inj SUBQ SCH ×4 (07:30→22:00)
[2016-06-03 09:13] VITALS: BP 146/82; PULSE 59; RESP 14; O2SAT 96
[2016-06-03 13:33] VITALS: BP 132/78; PULSE 66; RESP 15; O2SAT 95
--- NOTE | 2016-06-03 14:56 | NUR ---
STUDENT NURSING NOTE Pt is A/O x 3 and has been very social and personable today. He is complaining of less pain (LL abd); at the worst he rated it a 4 and was given one hydrocodone 325 tablet. When re-assessed for pain one hour post medication, he said it had decreased. I checked back with him after 4 hours to see how his pain levels were, he said tolerable and that he wasn't interested in taking any more pain medication at this time. Pt has been visiting with his , and Dr eRne changed him to a general diet. Pt is requesting no more colace - he has had two BM's today and self-reported that the second stool was pretty loose. I've been monitoring his BG before meals, but he has not needed any correctional doses as of this time. Zosyn wasn't started until 1040 as it had to come up from the pharmacy, so his next dosing will be given at approximately 1730.
--- NOTE | 2016-06-03 15:16 | NUR ---
Social Work- Initial Assessment Data: See Initial Assessment. Pt is a 71 year old male admitted 06/02/16 for diverticulitis per H&P. Pt's insurance is [employer] and [employer]. Pt's PCP is Adeline Cheung MD. SW met with pt at bedside regarding discharge plan, SW role explained. Pt alert and oriented x3. Pt resides in [place] in a home with his where he remains independent with his ADLs. [place] and continues to drive. Pt has no LTC insurance. Pt has [facility] benefits, pt is 70% service connected. Pt has a history of HH approximately a year ago after surgery but is unsure of company. Pt has no SNF history. Pt DPOA on file is Marcy Michel, daughter. Pt states that he has updated DPOA paperwork, SW encouraged pt to bring in copy for chart. SW provided phone number on whiteboard. Pt to discharge home with to transport via POV. No anticipated discharge needs, SW will continue to follow. Assessment: Pt who is independent at baseline. Plan: Pt to discharge home with to transport via POV. No anticipated discharge needs, SW will continue to follow. ENE Mcclure Addendum: 06/03/16 at 1517 by GLORIA FARAH Amended: Links added.
[2016-06-03 16:40] VITALS: BP 148/87; PULSE 71; RESP 15; O2SAT 95
[2016-06-03] MEDS: Fluticasone 0.05% 15 Spray/2 Gm 16 Gm Nasal Spray NASAL SCH (21:06)
[2016-06-03] MEDS: Pantoprazole 40 mg ER24 Tablet PO SCH (21:07)
[2016-06-03 21:15] VITALS: BP 136/78; PULSE 59; RESP 18; O2SAT 97
[2016-06-04 01:52] VITALS: BP 146/72; PULSE 57; RESP 18; O2SAT 97
[2016-06-04] MEDS: Heparin 5,000 Unit/mL Inj SUBQ SCH (05:15)
[2016-06-04 05:20] VITALS: BP 144/82; PULSE 56; RESP 18; O2SAT 95
[2016-06-04] MEDS: Insulin Human REGular 300 Unit/3 mL Inj SUBQ SCH (07:30)
--- NOTE | 2016-06-04 07:48 | NUR ---
Pain Pt reported pain as tolerable 3-4/10 during the shift. Pt declined his pain medication.
--- NOTE | 2016-06-04 08:34 | PCM.DIMED ---
Discharge Instructions Date of Service Jun 04, 2016 Dates of Hospitalization Jun 02, 2016 at 07:58 Discharge Diagnosis Discharge Diagnosis Primary diagnosis Acute diverticulitis. Under therapy, improving Secondary diagnosis Hypertension. GERD. Dyslipidemia. 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 Diet Other (high fiber diet) Activity No restrictions Call your provider Fever or Chills, Other (increasing abdominal pain) Patient Instructions Continue taking the antibiotics till finished Please call your doctor or go to the emergency department if the abdominal pain gets worse of if you have fever or chills Follow-up Provider: Adeline Cheung MD Follow-up with PCP in: 2 weeks Milan Norris MD Jun 04, 2016 08:34
[2016-06-04] MEDS ORDERED: AMOX-366 PO (08:37)
--- NOTE | 2016-06-04 09:05 | NUR ---
ANGIE signed by pt ENE Mistry
--- NOTE | 2016-06-04 10:26 | NUR ---
Discharge Patient left floor via wheelchair at 1025 to be driven home by friend. IV d/c'd intact. All discharge information discussed with patient including medications and follow up appointment. All belongings left with patient.
--- NOTE | 2016-06-04 10:41 | NUR ---
SW - Discharge Data: Pt is on day 2 of hospitalization for diverticulitis. EMR reviewed. Pt to discharge home today per nursing notes. SW met with pt at bedside to confirm dischareg plan. Pt to discharge home via family in POV with no needs. All updated and agreeable to plan. Assessment: Pt who is independent at baseline Plan: Pt to discharge home via PO with no needs. ENE Mistry
--- NOTE | 2016-06-04 23:10 | PCM.DC.MED ---
Discharge Summary Date of Service Jun 04, 2016 Dates of Hospitalization Date of Hospital Admission Jun 02, 2016 at 07:58 Date of Discharge: Jun 04, 2016 Providers: Admitting Physician: Claudy Tee Primary Care Physician: Adeline Cheung MD Attending Physician: Claudy Tee Diagnosis at Time of Discharge Diagnosis at Time of Discharge Primary diagnosis Acute diverticulitis. Under therapy, improving Secondary diagnosis Hypertension. GERD. Dyslipidemia. 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 Procedures XRay, CTs & MRIs Date of Service: 06/01/16 0342 PROCEDURE: CT ABDOMEN AND PELVIS WITH CONTRAST ([id number]) IMPRESSION: Acute left lower quadrant diverticulitis in the setting of mild to moderate sigmoid diverticulosis. No peridiverticular abscess is associated. Nonobstructive 8mm maximal dimension lower right renal collecting system calculus. Scattered simple hepatic cysts, and throughout the abdomen and pelvis no underlying neoplasm is suspected. Penile implant control device right lower quadrant. Dictated by: Fabio Johnson M.D. on 06/01/2016 at 10:54 Approved by: Fabio Johnson M.D. on 06/01/2016 at 11:05 Brief History 71 year old male presented to the ED yesterday (06/01) complaining of acute left lower abdominal pain. CT abdomen at that time was suggestive of acute diverticulitis. He was was offered the option to be admitted but he chose to go home with oral antibiotics. His abdominal pain continued last night and this morning he had several episodes of bilious vomiting. As instructed by ED the day before he represented to the hospital today and is being admitted for further inpatient treatment of his acute diverticulitis. He reports another episode of diverticulitis more than 10 years ago but otherwise does not recall any further details. His last colonoscopy was about 5 years ago at which time he had some polyps removed and says he thinks he is supposed to have repeat colonoscopy soon. He further reports history of irritable bowel and notes that he easily gets constipated with his last bowel movement about 3 days ago without any recent melena or hematochezia. He otherwise denies any fever or chills. He dose endorse a mild frontal headache that began since yesterday as well. Hospital Course 1 Acute diverticulitis. Present on admission. Under therapy, improving - Second episode, discussed avoid NSAID and maintaining a high fiber diet - Continue with IV Zosyn then transition to Augmentin PO (total 10 days of therapy) - Tolerating diet, advanced with no problems 2 Hypertension. Stable so far - Continue Lisinopril 5 mg daily 3 GERD. Chronic. - Continue Protonix 40 mg daily 4 Dyslipidemia. Chronic. Presumed stable. - Continue Atorvastatin 10 mg HS 5 Monoclonal gammopathy of uncertain significance (MGUS), IgG subtype, falling within a low-risk category. 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 Stable - Continue Gabapentin 600 mg tid Exam Vital Signs (Last) Date Time Temp Pulse Resp B/P Pulse Ox O2 Delivery O2 Flow Rate FiO2 06/04/16 05:20 36.7 56 18 144/82 95 Room Air Exam General: Alert, Oriented X3, Cooperative, No acute Distress Eyes: PERRLA, Scleral Anicteric Mouth: Mouth Normal, Mucous Membranes Moist/[place] Neck: Supple, no Thyromegaly, trachea central. Chest & Lungs: Clear to auscultation & percussion, No adventitious breath sounds, no crackles, no wheeze Cardiovascular: Normal S1, Normal S2, No Murmurs/Rubs/Gallops, Regular Rate/ Rhythm, (No JVD, no peripheral edema) Pulses: Radial (present and equal), Dorsalis Pedi (present and equal) Abdomen: Soft, Non-tender, Non-distended, Normoactive bowel tones. Musculoskeletal: Unremarkable. Normal range of motion, no swollen or erythematous joints Extremities: No edema, no cyanosis, no clubbing. Skin: No rashes. Warm and dry, no erythematous areas Neurological: Grossly neurologically intact, Normal Speech, Sensation Intact Lymphatic: Lymph nodes Cervical and Axillary not palpable. Test 06/02/16 07:05 06/02/16 08:17 06/03/16 06:20 Neutrophils (%) (Auto) 85.3% (40-74) Lymphocytes (%) (Auto) 6.0% (14-46) Monocytes (%) (Auto) 6.5% (4-12) Eosinophils (%) (Auto) 2.0% (0-5) Basophils (%) (Auto) 0.2% (0-3) Hemoglobin A1c 6.0% (4.8-5.6) Total Bilirubin 0.9mg/dL (0.0-1.2) Aspartate Amino Transf (AST/SGOT) 16U/L (0-50) Alanine Aminotransferase (ALT/SGPT) 24U/L (0-44) Alkaline Phosphatase 79U/L (25-160) Total Protein 7.7g/dL (6.4-8.4) Albumin 4.2g/dL (3.4-5.0) Lipase 16U/L (13-60) Urine Color Yellow (YELLOW) Urine Appearance Clear (CLEAR,HAZY) Urine pH 6.0 (5.0-8.0) Urine Specific [place] 1.025 (1.003-1.035) Urine Protein Tracemg/dL (NEG,TRACE) Urine Glucose (UA) Negativemg/dL (NEGATIVE) Urine Ketones Negativemg/dL (NEGATIVE) Urine Occult Blood Negative (NEGATIVE) Urine Nitrite Negative (NEGATIVE) Urine Bilirubin Negative (NEGATIVE) Urine Urobilinogen Normalmg/dL (NORMAL) Urine Leukocyte Esterase Negative (NEGATIVE) Urine RBC 0-2/hpf (0-2) Urine WBC 0-5/hpf (0-5) Urine Epithelial Cells Occasional/hpf (NONE-MOD) Urine Crystals None seen (NONE SEEN) Urine Bacteria Few/hpf (NONE-FEW) Urine Hyaline Casts None/lpf (NONE) Urine Granular Casts None seen (NONE SEEN) Urine Waxy Casts None seen (NONE SEEN) Urine Red Blood Cell Casts None seen (NONE SEEN) Urine White Blood Cell Casts None seen (NONE SEEN) Urine Mucus Present (None Seen) Urine Trichomonas None seen (NONE SEEN) Urine Yeast None (NONE SEEN) Urinalysis Comment None Urine Culture Reflexed Not indicated White Blood Count 4.1th/mm3 (3.8-10.1) Red Blood Count 4.08mil/mm3 (4.40-5.80) Hemoglobin 12.1g/dL (13.8-17.2) Hematocrit 37.0% (41.0-50.0) Mean Corpuscular Volume 90.7fL (81-100) Mean Corpuscular Hemoglobin 29.7pg (27.0-35.0) Mean Corpuscular Hemoglobin Concent 32.7% (32.0-37.0) Red Cell Distribution Width 14.6% (12.3-15.4) Platelet Count 118bil/L (150-400) Sodium Level 139mEq/L (134-144) Potassium Level 3.8mEq/L (3.5-5.2) Chloride Level 101mEq/L (97-108) Carbon Dioxide Level 24mmol/L (18-29) Blood Urea Nitrogen 15mg/dL (8-27) Creatinine 1.08mg/dL (0.76-1.27) Estimat Glomerular Filtration Rate 72mL/min (>59) Glucose Level 106mg/dL (60-99) Calcium Level 8.6mg/dL (8.5-10.1) Magnesium Level 1.9mg/dL (1.6-2.6) Discharge Medications Discharge Medications Amoxicillin/Clav K 875-125 mg (Augmentin 875-125 mg) 1 Each Tablet 1 TABLET PO BID Prescribed by: AMY MANZO MD Aspirin (Aspirin) 81 Mg Tablet 81 MG PO DAILY (Reported) Cholecalciferol (Vitamin D3) (Vitamin D) 1,000 Unit Capsule 1,000 UNIT PO DAILY (Reported) Cyanocobalamin (Vitamin B-12) (Vitamin B-12) 1,000 Mcg Tablet 1,000 MCG PO DAILY (Reported) Doxazosin (Cardura) 2 Mg Tablet 2 MG PO HS (Reported) Fluticasone Propionate (Fluticasone Propionate Nasal) 16 Gm [place].susp 2 SPRAY NS HS (Reported) Gabapentin (Gabapentin) 300 Mg Capsule 600 MG PO TID (Reported) Lisinopril (Lisinopril) 5 Mg Tablet 5 MG PO DAILY (Reported) Omeprazole (Omeprazole) 20 Mg Capsule.dr 20 MG PO HS (Reported) Pravastatin (Pravastatin) 40 Mg Tablet 40 MG PO DAILY (Reported) As needed Docusate Sodium (Colace) 100 Mg Capsule 100 MG PO BID PRN PRN For Constipation Prescribed by: EDWARDO MOORE MD Followup Plan Disposition: Home Discharge Diet: Other (high fiber diet) Discharge Activity: No restrictions Patient Instructions Continue taking the antibiotics till finished Please call your doctor or go to the emergency department if the abdominal pain gets worse of if you have fever or chills Follow-up Provider: Adeline Cheung MD Follow-up with PCP in: 2 weeks Time spent 25 minutes spend copies to: Adeline Cheung MD, Malik MD Jun 04, 2016 23:10
== END 2016-06-04 10:30 | disposition home or self-care (01) | DRG 392 ==
LOC: SED 06:33 → MOC 07:58
PROVIDERS: ADMIT Internal Medicine; ATTEND Internal Medicine
DX: K57.32 Diverticulitis of large intestine without perforation or abscess without bleeding (principal); D47.2 Monoclonal gammopathy; Z79.82 Long term (current) use of aspirin; Z85.51 Personal history of malignant neoplasm of bladder; Z87.891 Personal history of nicotine dependence; K57.30 Diverticulosis of large intestine without perforation or abscess without bleeding; Z86.010 Personal history of colon polyps; I10 Essential (primary) hypertension; K21.9 Gastro-esophageal reflux disease without esophagitis; E78.5 Hyperlipidemia, unspecified; R73.03 Prediabetes; G62.9 Polyneuropathy, unspecified

== ENCOUNTER 2016-09-02 06:17 | Day surgery (SDC) | payer MEDICARE, OTHER ==
--- NOTE | 2016-08-29 11:39 | PCM.ANEPRE ---
Anesthesia Pre-Op Review Reason for Review: office request Anesthesia Recommendations: Proceed with Procedure Additional Comments pt with frederic 06/13. consider ABIGAIL protocol Andrea Barillas MD Aug 29, 2016 11:39
[~2016-09-02] VITALS: Ht 182.9 cm; Wt 110.3 kg
[2016-09-02] VITALS (11 sets, daily range): BP systolic 70–111; BP diastolic 42–72; PULSE 54–67; RESP 8–14; O2SAT 90–98
[~2016-09-02 06:17] MED LIST changes: -ACET-1890 PO; -AMOX-364 PO; -ASPI-628 PO; +ASPI-973 PO; +CHOL100045 PO; -CHOL100094 PO; +CYAN10008 PO; -CYAN500 PO; -CYCL7.5T27 PO; +CeFAZolin Inj 2 GM in IV Premix 1 EACH IV ONE; -HYDR-4003 PO; -IBUP200T48 PO; -METR500T PO; -OMEP-113 PO; +OMEP20CA11 PO
[2016-09-02] MEDS ORDERED: Propofol 10,000 mCg/mL 20 mL Inj ONE (06:18)
[2016-09-02] MEDS ORDERED: fentaNYL-PF 50 mCg/mL 2 mL Inj ONE (06:18)
[2016-09-02] MEDS: Lactated Ringer's 1,000 ML IV SCH ×2 (06:37→08:22)
[2016-09-02] MEDS ORDERED: LIP40 PO (06:56)
--- NOTE | 2016-09-02 07:23 | PCM.HPANE ---
Patient Data Surgeon Admitting Provider: Attending Provider:Tony Lora DPM Primary Care Physician:Adeline Cheugn MD Other Provider:Kiki Ulrich Anesthesia Reason for Visit Closed Nondisplaced Fracture Of Anterior Left Calc Ht/WT & BMI Height (Feet): 6 Height (Inches): 0 Weight (Kilograms): 110.3 Body Mass Index 32.00 Allergies Coded Allergies: Sulfa (Sulfonamide Antibiotics) (Verified Allergy, Severe, RASH, 08/26/16) ciprofloxacin HCl (Verified Allergy, Severe, RASH, 08/26/16) diazepam (Verified Adverse Reaction, Intermediate, over sedation, 08/26/16) "acting like he was having a stroke" Past Anesthesia History Anesthesia History: Denies:: Abnormal Airway, Anesthesia Reactions ("it doesn' t take very much!"), Difficult Intubation, Fam Anesthesia Reaction, Fam Malignant Hypertherm, Malignant Hyperthermia Diabetes History Hx Diabetes?: No MRSA MRSA: No Medications Blood Thinner: Aspirin Hypertension Medication: Yes Home Meds Incl Beta Nano: No Active Scripts Docusate Sodium (Colace)100 Mg [id number] Mg PO BID PRN For Constipation #100 CAPSULE Ref 0 Prov:Usman Azevedo MD 06/01/16 Reported Medications Atorvastatin (Lipitor)40 Mg [id number] Mg PO DAILY Ref 0 09/02/16 Cholecalciferol (Vitamin D3) (Vitamin D)1,000 Unit Capsule1,000 Unit PO DAILY # 1 BOTTLE Ref 0 06/02/16 Aspirin 81 Mg [id number] Mg PO DAILY Ref 0 06/02/16 Cyanocobalamin (Vitamin B-12) (Vitamin B-12)1,000 Mcg Tablet1,000 Mcg PO DAILY 06/02/16 Omeprazole 20 Mg Capsule.dr20 Mg PO HS #90 06/02/16 Doxazosin (Cardura)2 Mg Tablet2 Mg PO HS Ref 0 01/06/16 Fluticasone Propionate (Fluticasone Propionate Nasal)16 Gm [place].susp2 [place] NS HS #16 GM Ref 0 08/19/13 Lisinopril 5 Mg Tablet5 Mg PO DAILY #30 TABLET Ref 0 08/19/13 Gabapentin 300 Mg [id number] Mg PO TID 30 Days Ref 0 08/19/13 Discontinued Reported Medications Pravastatin 40 Mg [id number] Mg PO DAILY 30 Days Ref 0 08/19/13 History History of ENT Problems?: Yes HEENT History: Positive for:: Hearing Problem ('extreme") Denies:: Abnormal Airway Cataracts Difficult Intubation Dysphagia Glaucoma Sinus Problem TMJ Denture Type: None Teeth Condition: Within Normal Limits Hx of Heart Problems?: Yes Cardiovascular History: Positive for:: Atrial Fibrillation (HX SVT-ASX) Coronary Artery Disease Hypertension Denies:: AICD Abdominal Aortic Aneurism Cardiac Surgery Chest Pain Congestive Heart Failure Edema Heart Murmur Irregular Heartbeat Pacemaker Peripheral Vascular Thrombophlebitis Valvular Heart Disease Other Cardiac History: pt has history of MGUS- followed by med oncology- Dr Snyder Hx of Respiratory Problem?: Yes Respiratory History: Positive for:: Pneumonia (viral pneumonia at age 12.) Denies:: Asthma COPD Chest Surgery Cough Dyspnea Emphysema Hemoptysis Tuberculosis Use of C-PAP Machine (consultation scheduled September 05, 2016) Use of Inhalers / NEBS Hx Neurologic Problems?: Yes Neurological History: Positive for:: Dizziness (vasovagal syncope hx) Denies:: Alzheimer's Disease CVA Dementia Headaches Parkinson's Disease Seizures Other Neurological Pertinent: fall of ladder 2016 subdural hematoma/fx spine- nearly continual issues with adhesions per pt Hx of C4-7 ACDF, T6-11 fusion Hx of GI Problems?: Yes Hx of Problems?: Yes Genitourinary History: Positive for:: Kidney Stones (>100 resolved with parathyroidectomy) Denies:: HX of Hemodialysis Urinary Tract Infection HX of Peritoneal Dialysis: No Male Hx: Positive for:: Prostate Problems (BPH) Testicular Surgery (hx bilat orchiopexy) Denies:: Scrotal Mass Skin History: Denies:: History Skin Disorders? Pressure Ulcers Hx Musculoskeletal Problems?: Yes Musculoskeletal History: Positive for:: Back Injury (hx of C4-7 ACDF, T6-11 fusion at [facility]/trauma 2016) Degenerative Joint Joint Replacement (L hip and R shoulder) Musculoskeletal Trauma (left calcaneal fx fragment current admission problem) Osteoarthritis Denies:: Fibromyalgia Systemic Lupus Hx of Psycho/Social Problems?: Yes Psycho Social History: Positive for:: Hx Depression (PTSD) Denies:: Anxiety Bipolar Disorder Suicide Attempt Hx Surgeries?: Yes (C/T vertebrae fused, L hip, R shoulder repl, wrists) Hx Any Other Health Problems?: Yes Other History: Positive for:: Cancer (BLADDER/PENILE CA,ADRENAL ADENOMA/MGUS, BCC SKIN) Hospitalization (TBI/vertebrae fractures, surgery, MGUS) Denies:: Endocrine Disease Thyroid Disease (hx parathyroidectomy) History Blood Transfusions: Positive for:: Accept Blood Products? Blood Transfusions Denies:: Blood Transfuse Reaction Hx Diabetes: No Hx Alcohol Use: YesAlcoholic Drinks Per Day: one drink weeklyHx Substance Use : No Smoking Status: Former Smoker Have You Smoked inLast 12 mo: No Stop/Bang Risk Assessment Category Category 1A: Patient has history of documented sleep apnea, and HAS NOT received any narcotic, sedative or anesthesia administration during this stay. Category 1B: Patient has history of documented sleep apnea, and HAS received any narcotic , sedative or anesthesia administration during this stay Category 2: Patient has SUSPECTED Obstructive Sleep Apnea, and HAS received any narcotic , sedative or anesthesia administration during this stay. Category 3: Patient has SUSPECTED Obstructive Sleep Apnea and HAS NOT received narcotic, sedative or anesthesia administration during this stay. Category 4: Outpatient in Procedural Areas with known sleep apnea or who screen positive for High Risk via the STOP/BANG questionnaire. Exam Exam Vital Signs Vital Signs Date Time Temp Pulse Resp B/P Pulse Ox O2 Delivery O2 Flow Rate FiO2 09/02/16 06:37 36.4 67 12 111/63 96 Room Air General Appearance: Alert, Oriented X3, Cooperative HEENT/AIRWAY: MP 2, Neck Movement (thick, 50% expected ROM), Mouth Opening (wnl ) Lungs: Clear to Auscultation Heart: Exam Unremarkable Meds/Labs/Diagnostics Admission Meds Current Medications Lactated Ringer's (Lr) 1,000 ml @ 120 mls/hr Q8H20M IV Last administered on t 06:37; Start 09/02/16 at 05:00; Stop 09/02/16 at 13:19 Plan Impression Patient chart reviewed, patient interviewed and anesthestic plan with risks, benefits, and alternatives discussed, and informed consent obtained. ASA Physical Status: ASA2 Mod Systemic Disease Anesthetic Plan: MAC Bene/Risks/Altern/Consents: Yes HP Complete Prior to Induction: Yes Casey Gregory MD Sep 02, 2016 07:23
[2016-09-02] MEDS ORDERED: Lactated Ringer's 1,000 ML IV SCH ×2 (08:14→09:51)
[2016-09-02] MEDS ORDERED: MetoCLOpramide 5 mg/mL 2 mL Inj IVPUSH PRN (08:15)
[2016-09-02] MEDS ORDERED: Ondansetron 2 mg/mL 2 mL Inj IVPUSH PRN (08:15)
[2016-09-02] MEDS ORDERED: Bupivacaine-MPF 0.5% W/EPI 30 mL Inj INFILTRATE ONE (08:22)
[2016-09-02] MEDS ORDERED: Gentamicin 40 mg/mL 2 mL Inj IRRIGATION ONE (08:22)
[2016-09-02] MEDS ORDERED: HYDROcodone-APAP 5-325 mg Tablet PO PRN (09:35)
[2016-09-02] MEDS ORDERED: EPHEDrine Sulfate 50 mg/mL Inj ONE (09:38)
--- NOTE | 2016-09-02 09:43 | PCM.PODPO ---
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 All preoperative comorbidities and allergies were identified and thoroughly discussed. The patient was transported into the operating room and placed on the operating room table in the normal supine position. The patient was then placed under Mac anesthesia by the anesthesia service a preoperative block consisting of 10 mL of half percent Marcaine with epinephrine was given around the surgical site of the lateral foot. The patient was then prepped and draped in the normal aseptic technique attention was first paid the lateral aspect of the left foot. A curvilinear incision was made overlying the calcaneocuboid joint and extensor digitorum brevis muscle belly approximately 3-1/2 cm in length. Once through the initial layer skin all subcutaneous neurovascular structures were identified and retracted out of the surgical field. The borders of the extensor digitorum and brevis muscle belly were identified through blunt dissection with a Metzenbaum scissor. A fresh #15 blade was then utilized to reflect the extensor digitorum brevis muscle belly distally taking care not to insult the neurovascular supply. Following reflection of the extensor digitorum muscle belly the anterior calcaneal process was clearly visualized. The fracture fragment was noted with mild surrounding XL callus formation which was lightly debrided with a rongeur. A [place] periosteal elevator was utilized to free the nonunion from the remainder of the calcaneus. A rongeur was then utilized to resect the nonunion fracture fragment. A rasp was utilized to smooth down any sharp bony prominence and a rongeur was again utilized to remove any remaining bone callus formation or bony prominence. The wound was then closely flushed with large amounts of normal saline. The extensor digitorum brevis muscle belly was sutured back into place utilizing number 3. 0 Vicryl. Subcutaneous closure was performed utilizing number 3. 0 Vicryl. Skin closure was performed utilizing number 3. 0 Prolene. Postoperatively the patient was blocked utilizing an additional 10 mL of half percent Marcaine with epinephrine. The wound was then dressed with Adaptic sterile 4 x 4 gauze Kerlix and an Margarito bandage. No complications occurred during this procedure. The patient was awoken by anesthesia and transported out of the operating room. Grafts, Implants: None Complications There were no periprocedural complications identified. Condition Stable Anesthetic Administered: MAC Catheters: None Output, Estimated Blood Loss: 20 Blood Admin during surgery: No Surgical Cast or Splint: None Surgical Specimen Removed: No Specimen sent to Pathology: No Post Operative Plan Ice and elevate left foot Keep dressing clean dry and intact Discharged to home when stable Dispense surgical shoe left lower extremity Follow-up in 1 week Tony Lora DPM Sep 02, 2016 09:43
--- NOTE | 2016-09-02 09:48 | PCM.ANEP1 ---
Post Anesthesia PACU Phase 1 Assessment Vital Signs Vital Signs Date Time Temp Pulse Resp B/P Pulse Ox O2 Delivery O2 Flow Rate FiO2 09/02/16 09:45 59 13 94/56 97 Nasal Cannula 2 09/02/16 09:40 57 13 90/48 97 Nasal Cannula 2 09/02/16 09:38 58 14 84/51 97 Nasal Cannula 2 09/02/16 09:35 60 75/42 97 Nasal Cannula 2 09/02/16 09:34 36.2 60 14 70/47 90 Room Air 09/02/16 06:37 36.4 67 12 111/63 96 Room Air Anesthetic Administered: MAC Level of Alertness: Awake, talking JAIME's with Equal Strength: Yes Pain: No Nausea or Vomiting: No CV Function & Hydration Stable: Yes Airway Device: Oxygen Delivery: Room Air Lungs: Clear to Auscultation PACU Phase 2 Assessment Complications: No Follow up Care: No Patient Instructions Provided: N/A Casey Gregory MD Sep 02, 2016 09:48
[2016-09-02] MEDS ORDERED: Lactated Ringer's 500 ML IV PRN (09:51)
[2016-09-02] MEDS ORDERED: Phenylephrine 10,000 mCg/mL Inj IVPUSH PRN (09:55)
[2016-09-02] MEDS ORDERED: Dexamethasone 4 mg/mL Inj IVPUSH PRN (09:55)
[2016-09-02] MEDS ORDERED: EPHEDrine Sulfate 50 mg/mL Inj IVPUSH PRN (09:55)
[2016-09-02] MEDS ORDERED: Atropine 0.4 mg/mL Inj IVPUSH PRN (09:55)
[2016-09-02] MEDS ORDERED: hydrALAZINE 20 mg/mL Inj IVPUSH PRN (09:55)
[2016-09-02] MEDS ORDERED: Labetalol 5 mg/mL 4 mL Inj IV PRN (09:55)
== END 2016-09-02 23:59 | disposition home or self-care (01) ==
LOC: SAS 06:17
PROVIDERS: ATTEND Podiatrist Foot & Ankle Surgery
PROC: 0QBM0ZZ Excision of Left Tarsal, Open Approach (ICD-10-PCS; principal; 2016-09-02 08:15)
DX: S92.022K Displaced fracture of anterior process of left calcaneus, subsequent encounter for fracture with nonunion (principal); X58.XXXD Exposure to other specified factors, subsequent encounter; I10 Essential (primary) hypertension; M79.672 Pain in left foot; E78.5 Hyperlipidemia, unspecified
CPT/HCPCS: 28120; J0690; J1580; J3010; J7120